=== PATIENT | male | born 1965 | race Caucasian/White ===

== ENCOUNTER 2018-09-23 18:04 | Emergency (ER) | payer BC ==
[~2018-09-23] VITALS: Ht 175.3 cm; Wt 93.0 kg
[2018-09-23 19:39] VITALS: BP 145/85
== END 2018-09-23 19:39 | disposition home or self-care (01) ==
LOC: ED 18:04
DX: S61.217A Laceration without foreign body of left little finger without damage to nail, initial encounter (principal); I10 Essential (primary) hypertension; W22.8XXA Striking against or struck by other objects, initial encounter; Y93.89 Activity, other specified; Y92.89 Other specified places as the place of occurrence of the external cause; Y99.8 Other external cause status
CPT/HCPCS: 90714; J2001